=== PATIENT | female | born 1970 ===

== ENCOUNTER 2024-08-04 05:30 | Day surgery (SDC) | payer OTHER ==
[~2024-08-04 05:30] MED LIST: ELETRIPTAN HBR40 MG; PREMPRO
[2024-08-04] MEDS ORDERED: LIDOCAINE HCL 1%/EPINEPHRINE 20ML VIAL IJ ONE (08:30)
[2024-08-04] MEDS ORDERED: CEFAZOLIN SODIUM 1,000 MG VIAL IV ONE (08:30)
[2024-08-04] MEDS ORDERED: GENTAMICIN SULFATE 40 MG/ML VIAL IR ONE (08:45)
[2024-08-04] MEDS ORDERED: HEMOSTATIC MATRIX 1 KIT KIT TOP ONE (09:15)
[2024-08-04] MEDS ORDERED: TRAM1TAB98 PO (10:22)
== END 2024-08-04 12:45 | disposition home or self-care (01) ==
LOC: CIR.AMB 05:30
PROVIDERS: ATTEND Obstetrics & Gynecology Gynecology
DX: N39.3 Stress incontinence (female) (male) (principal); N94.10 Unspecified dyspareunia